=== PATIENT | female | born 1970 | race Caucasian/White ===

== ENCOUNTER → 2021-07-14 13:48 | Outpatient (CLI) | payer OTHER, SELFPAY ==
--- NOTE | ~2021-07-14 | MR_ITS ---
EXAMINATION: MR brain/brain stem wo/w con DATE: 07/14/2021 15:13 INDICATION: Multiple sclerosis. TECHNIQUE: Magnetic resonance imaging (MRI) of the brain and brainstem was performed without and with 15 mL MultiHance intravenous contrast. Sequences included sagittal and axial T1-weighted FLAIR, axia l T1-weighted FSE, axial diffusion-weighted FS EPI, sagittal T2-weighted FLAIR, axial T2*-weighted GR E, axial T2-weighted FLAIR Propeller, and axial T2-weighted Propeller. Postcontrast sequences include d axial, coronal, and sagittal T1-weighted FSE. Apparent diffusion coefficient (ADC) maps were create d. COMPARISON: Brain MRI 10/30/2018 FINDINGS: There are approximately 9 total lesions of increased T2-weighted signal intensity in the br ain. Of these lesions, approximately 4 are periventricular, none are juxtacortical, and 3 are infrate ntorial in the medulla. None of the lesions enhance. There is no acute ischemic infarct or intracrani al hemorrhage. The ventricles are normal in size. There is mild mucosal thickening in the ethmoid sin uses. The orbits are normal. The mastoid air cells are normal. IMPRESSION: 1. Brain lesions without change in number or distribution from 10/30/2018, consistent with multiple sc lerosis. Reviewed, dictated and finalized at location B. IMPRESSION: 1. Brain lesions without change in number or distribution from 10/30/2018, consi stent with multiple sclerosis.
--- NOTE | ~2021-07-14 | MR_ITS ---
EXAMINATION: MR cervical spine wo/w con DATE: 07/14/2021 15:00 INDICATION: Multiple sclerosis. TECHNIQUE: Magnetic resonance imaging (MRI) of the cervical spine was performed without and with 15 m L MultiHance intravenous contrast. Sequences included sagittal and axial T2-weighted FSE, sagittal T2 -weighted FS FSE, and sagittal and axial T1-weighted FSE. Postcontrast sequences included sagittal an d axial T1-weighted FS FSE. COMPARISON: Cervical spine MRI 10/30/2018 FINDINGS: There is 10 degrees dextroscoliosis of cervical spine. Vertebral body heights are normal. T here is mildly decreased disc height at C5-C6 and moderately decreased disc height at C6-C7. There ar e patchy areas of ill-defined increased T2-weighted signal intensity involving the medulla and cervic al spinal cord. No abnormal contrast enhancement. The following disc levels are specifically discusse d: C2-C3: The disc does not extend beyond the endplate margin. There is no uncovertebral joint osteoarth ritis. There is no facet joint osteoarthritis. There is no neural foraminal stenosis. There is no olayinka tral canal stenosis. C3-C4: The disc is bulging. There is mild bilateral uncovertebral joint osteoarthritis. There is mild right and moderate left facet joint osteoarthritis. There is no neural foraminal stenosis. There is no central canal stenosis. C4-C5: The disc does not extend beyond the endplate margin. There is no uncovertebral joint osteoarth ritis. There is no facet joint osteoarthritis. There is no neural foraminal stenosis. There is no olayinka tral canal stenosis. C5-C6: The disc is bulging. There is moderate bilateral uncovertebral joint osteoarthritis. There is mild bilateral facet joint osteoarthritis. There is mild bilateral neural foraminal stenosis. There i s mild central canal stenosis. C6-C7: The disc is bulging. There is moderate bilateral uncovertebral joint osteoarthritis. There is moderate right and mild left facet joint osteoarthritis. There is mild bilateral neural foraminal ramez nosis. There is mild central canal stenosis. C7-T1: The disc does not extend beyond the endplate margin. There is no uncovertebral joint osteoarth ritis. There is mild right and moderate left facet joint osteoarthritis. There is mild left neural fo raminal stenosis. There is no central canal stenosis. IMPRESSION: 1. Stable number and distribution of lesions involving the medulla and spinal cord, consistent with m ultiple sclerosis. 2. Worsened moderate cervical spondylosis. 3. Cervical dextroscoliosis. Reviewed, dictated and finalized at location B. IMPRESSION: 1. Stable number and distribution of lesions involving the medulla and spinal c ord, consistent with multiple sclerosis. 2. Worsened moderate cervical spondylosis. 3. Cervical dextroscoliosis.
[2021-07-14 14:13] LABS: Estimated Glomerular Filt Rate > 60
== END ==
PROVIDERS: Visit Provider Psychiatry & Neurology Neurology
DX: G35 Multiple sclerosis (principal); M47.892 Other spondylosis, cervical region
CPT/HCPCS: 70553; 72156; A9577

== ENCOUNTER 2023-07-01 06:52 | Day surgery (SDC) | payer OTHER, SELFPAY ==
[2023-05-13 08:33] VITALS: BMI 27.4
[2023-06-13 11:39] VITALS: BMI 29.0
--- NOTE | 2023-06-29 11:05 | WPDANESEPPF ---
Anes - Initial Pre Proc Eval Procedure: Operation Date: 07/01/23 09:00 Proposed Procedures p Diagnostic Colonoscopy - Mainor Mohan MD Date/Time: 06/29/23 11:05 Surgeon: Mainor Mohan MD Pre Op Diagnosis: Fecal Urgency, neoplasia screening Patient Data Age: 52 Gender: F Height: 1.65 m Weight: 79 kg Allergies Allergy/AdvReac Type Severity Reaction Status Date / Time No Known Allergies Allergy Mild Verified 06/13/23 11:37 Home Medications Medication Instructions Recorded Confirmed Type desvenlafaxine succinate 50 mg 50 mg PO DAILY 10/08/22 07/01/23 History tablet,extended release 24 hr fesoterodine 8 mg tablet,extended 8 mg PO DAILY 10/08/22 07/01/23 History release 24 hr (Toviaz) teriflunomide 14 mg tablet 14 mg PO DAILY 10/08/22 07/01/23 History (Aubagio) valacyclovir 1 gram tablet 1,000 mg PO DAILY 10/08/22 07/01/23 History sodium,potassium,mag sulfates 17.5 See Rx Instructions PO .COMPLEX 05/13/23 07/01/23 Rx gram-3.13 gram-1.6 gram oral soln #354 mL (Suprep Bowel Prep Kit) ascorbate calcium (vitamin C) 500 500 mg PO DAILY 06/13/23 07/01/23 History mg tablet cholecalciferol (vitamin D3) 50 50 mcg PO DAILY 06/13/23 07/01/23 History mcg (2,000 unit) capsule (Vitamin D3) Patient hx anesthesia problems: none Family hx anesthesia problems: none Results Review: All pre-operative results and documents have been reviewed as part of the pre-operative evaluation. COUNT INCLUDES THE [facility] Past Medical History Medical History (Updated 07/01/23 @ 08:42 by Mainor Mohan MD) Abnormal Pap smear of cervix 10/2009- lgsil sl dysplasia +hpv 09/2012- Lgsil mild dysplasia +hpv 03/21/2016 Hgsil +hpv; 04/04/2020 Ascus hpv neg Anxiety and depression Fecal incontinence Fecal urgency HPV in female Multiple sclerosis Pityriasis rosea Screening mammogram, encounter for Surgical History Surgical History H/O LEEP (05/03/16) HGSIL (KIM 2-3) margin involved History of (01/11/98) History of colposcopy with cervical biopsy 10/30/12 LGSIL mild dysplasia +hpv History of tubal ligation Family History Family History Mother Hypertension Depressive disorder Social History Social History Smoking status: Never smoker Alcohol intake: current Drinks per week: 0 Alcohol use details: ONE A MONTH Substance use: never Substance use type: does not use Living arrangements: alone Additional living arrangements comments: Occupation/Education: occupation 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 Gender identity (if verbalized by the patient): Female Sexual Orientation (if Verbalized by the Patient): Straight or Heterosexual Spiritual care concerns: No Anes - Eval Final PreProcedure Day of Procedure 06/29/23 11:05 Patient weight: overweight Heart: regular rate and rhythm Lungs: clear to auscultation Airway: Mallampati scale class II Neurological: alert and oriented Last oral intake: >/= 8 hours ASA classification: II Emergent: no Anesthetic plan: proceed Anesthesia type and monitoring: general GIVS and standard monitoring Results Review: All pre-operative results and documents have been reviewed as part of the pre-operative evaluation. Informed Consent: The patient's anesthetic plan and its attendant risks and benefits were discussed with the patient/family/POA. Questions were solicited and answers provided to the satisfaction of the patient/family/POA.
[2023-07-01 08:14] VITALS: BP 114/92; PULSE 96; RESP 16; TEMP 36.8; O2SAT 96
[2023-07-01] MEDS: LACTATED RINGERS 1,000 ML 150 ML IV CONT (08:23)
--- NOTE | 2023-07-01 08:40 | PM.HPGS ---
History of Present Illness History of Present Illness Consent: Risks, benefits, and alternatives have been discussed and questions answered. Patient agrees to proceed with procedure. Chief complaint: Fecal Urgency, neoplasia screening Narrative: Briana Madrid is a 52 year old female Presents for screening colonoscopy. Patient has never had prior scope the. Patient does have a history of multiple sclerosis. She reports when she goes for several mile walk, she will have urgency and need to stop in have a bowel movement. She denies any bleeding. She has had no weight loss. Family history non control Review of Systems Review of Systems: systems noncontributory. [facility] Past Medical History Medical History (Updated 07/01/23 @ 08:42 by Mainor Mohan MD) Abnormal Pap smear of cervix 10/2009- lgsil sl dysplasia +hpv 09/2012- Lgsil mild dysplasia +hpv 03/21/2016 Hgsil +hpv; 04/04/2020 Ascus hpv neg Anxiety and depression Fecal incontinence Fecal urgency HPV in female Multiple sclerosis Pityriasis rosea Screening mammogram, encounter for Surgical History Surgical History H/O LEEP (05/03/16) HGSIL (KIM 2-3) margin involved History of (01/11/98) History of colposcopy with cervical biopsy 10/30/12 LGSIL mild dysplasia +hpv History of tubal ligation Family History Family History Mother Hypertension Depressive disorder Social History Social History Smoking status: Never smoker Alcohol intake: current Drinks per week: 0 Alcohol use details: ONE A MONTH Substance use: never Substance use type: does not use Living arrangements: alone Additional living arrangements comments: Occupation/Education: occupation 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 Gender identity (if verbalized by the patient): Female Sexual Orientation (if Verbalized by the Patient): Straight or Heterosexual Spiritual care concerns: No Meds Home Medications and Allergies Home Medications Medication Instructions Recorded Confirmed Type desvenlafaxine succinate 50 mg 50 mg PO DAILY 10/08/22 07/01/23 History tablet,extended release 24 hr fesoterodine 8 mg tablet,extended 8 mg PO DAILY 10/08/22 07/01/23 History release 24 hr (Toviaz) teriflunomide 14 mg tablet 14 mg PO DAILY 10/08/22 07/01/23 History (Aubagio) valacyclovir 1 gram tablet 1,000 mg PO DAILY 10/08/22 07/01/23 History sodium,potassium,mag sulfates 17.5 See Rx Instructions PO .COMPLEX 05/13/23 07/01/23 Rx gram-3.13 gram-1.6 gram oral soln #354 mL (Suprep Bowel Prep Kit) ascorbate calcium (vitamin C) 500 500 mg PO DAILY 06/13/23 07/01/23 History mg tablet cholecalciferol (vitamin D3) 50 50 mcg PO DAILY 06/13/23 07/01/23 History mcg (2,000 unit) capsule (Vitamin D3) Allergies Allergy/AdvReac Type Severity Reaction Status Date / Time No Known Allergies Allergy Mild Verified 06/13/23 11:37 Vital Signs Vital Signs - 24 hr 07/01/23 08:14 Temperature 98.2 F Pulse Rate 96 Respiratory Rate 16 Blood Pressure 114/92 H Pulse Oximetry 96 Oxygen Delivery Room Air Exam Narrative: Physical exam reveals patient to be alert. Vital signs stable. HEENT exam is unremarkable. Patient is anicteric. Lungs are clear to auscultation and percussion. Heart is without murmur or extra sounds. Abdomen bowel sounds are present soft nontender with no organomegaly. Digital rectal exam appears unremarkable with normal tone. Assessment and Plan Assessment and plan (1) Encounter for screening colonoscopy: Code(s): Z12.11 - Encounter for screening for malignant neoplasm of colon Status: Acute Assessment and Plan: Patient has never had prior screening colonoscopy. Because of her age screen
[2023-07-01 09:11] VITALS: BP 96/75; PULSE 93; RESP 16; O2SAT 98
[2023-07-01 09:21] VITALS: BP 107/73; PULSE 86; RESP 16; O2SAT 98
[2023-07-01 09:31] VITALS: BP 111/72; PULSE 85; RESP 14; O2SAT 97
--- NOTE | 2023-07-01 12:32 | WPDANESPN ---
Anes - Prog Note Post-Op Date/Time: 07/01/23 12:32 Cardiovascular status: normal Respiratory status: normal Airway patency: baseline Mental status: baseline Post-Op hydration status: normal Vital Signs: Last Vital Signs Temp 36.8 C 07/01/23 08:14 Pulse 85 07/01/23 09:31 Resp 14 07/01/23 09:31 BP 111/72 07/01/23 09:31 Pulse Ox 97 07/01/23 09:31 O2 Del Method Room Air 07/01/23 09:31 Pain Score (VAS): 0 I/O: Intake & Output 06/30/23 07/01/23 07/01/23 23:59 07:59 15:59 Intake Total 750 Balance 750 Post-procedural complaints: none Patient Feedback: Patient satisfied with anesthetic care. Other Findings: Patient vital signs back to baseline. Patient denies nausea and vomiting. Patient's pain under control. Patient OK for discharge.
== END 2023-07-01 09:55 | disposition home or self-care (01) ==
PROVIDERS: PCP Family Medicine; Visit Provider Internal Medicine Gastroenterology
PROC: 0DJD8ZZ Inspection of Lower Intestinal Tract, Via Natural or Artificial Opening Endoscopic (ICD-10-PCS; CPT 45378; principal; 2023-07-01 09:00)
DX: Z12.11 Encounter for screening for malignant neoplasm of colon (principal); R15.2 Fecal urgency
CPT/HCPCS: 45378

== ENCOUNTER 2023-11-08 13:49 | Outpatient (CLI) | payer OTHER, SELFPAY ==
--- NOTE | ~2023-11-08 | MR_ITS ---
EXAMINATION: MR brain/brain stem wo con DATE: 11/08/2023 14:34 INDICATION: Multiple sclerosis. TECHNIQUE: Magnetic resonance imaging (MRI) of the brain and brainstem was performed without intraven ous contrast. COMPARISON: Brain MRI 07/14/2021 FINDINGS: Again seen are approximately 9 total lesions of increased T2-weighted signal intensity in t he brain. Of these lesions, multiple are periventricular, none are juxtacortical, and multiple are in fratentorial in the medulla. There is no intracranial hemorrhage or acute ischemic infarct. The ventr icles are normal in size. The orbits are normal. The paranasal sinuses are clear. The mastoid air donny ls are normal. IMPRESSION: 1. Brain lesions without change in number or distribution from 07/14/2021, consistent with multiple sc lerosis. Reviewed, dictated and finalized at location A. TRICIAN IMPRESSION: 1. Brain lesions without change in number or distribution from 07/14/2021, consi stent with multiple sclerosis.
--- NOTE | ~2023-11-08 | MR_ITS ---
EXAMINATION: MR cervical spine wo con DATE: 11/08/2023 14:36 INDICATION: Multiple sclerosis. TECHNIQUE: Magnetic resonance imaging (MRI) of the cervical spine was performed without intravenous c ontrast. COMPARISON: Cervical spine MRI 07/14/2021 FINDINGS: There is 11 degrees dextroscoliosis of cervical spine. Vertebral body heights are normal. T here is mildly decreased disc height at C3-C4 and C4-C5 and moderately decreased disc height at C5-C6 and C6-C7. There are multiple ill-defined lesions of increased T2-weighted signal intensity in the c ervical spinal cord and medulla. The following disc levels are specifically discussed: C2-C3: The disc does not extend beyond the endplate margin. There is mild bilateral uncovertebral zoltan nt osteoarthritis. There is mild bilateral facet joint osteoarthritis. There is no neural foraminal s tenosis. There is no central canal stenosis. C3-C4: The disc is bulging. There is mild bilateral uncovertebral joint osteoarthritis. There is mild bilateral facet joint osteoarthritis. There is no neural foraminal stenosis. There is no central can al stenosis. C4-C5: The disc is bulging. There is mild bilateral uncovertebral joint osteoarthritis. There is mild left facet joint osteoarthritis. There is no neural foraminal stenosis. There is no central canal st enosis. C5-C6: The disc is bulging. There is severe bilateral uncovertebral joint osteoarthritis. There is mi ld bilateral facet joint osteoarthritis. There is mild bilateral neural foraminal stenosis. There is mild central canal stenosis. C6-C7: The disc is bulging. There is severe bilateral uncovertebral joint osteoarthritis. There is mo derate bilateral facet joint osteoarthritis. There is moderate right and mild left neural foraminal s tenosis. There is mild central canal stenosis. C7-T1: The disc does not extend beyond the endplate margin. There is mild right and severe left uncov ertebral joint osteoarthritis. There is mild bilateral facet joint osteoarthritis. There is no neural foraminal stenosis. There is no central canal stenosis. IMPRESSION: 1. Stable lesions in the spinal cord and medulla, consistent with multiple sclerosis. 2. Moderate cervical spondylosis, mildly worsened from 07/14/2021. Reviewed, dictated and finalized at location A. STRIAL X RAY OPERATOR IMPRESSION: 1. Stable lesions in the spinal cord and medulla, consistent with multiple scle rosis. 2. Moderate cervical spondylosis, mildly worsened from 07/14/2021.
== END 2023-11-08 13:50 ==
PROVIDERS: PCP Psychiatry & Neurology Neurology; Visit Provider Psychiatry & Neurology Neurology
DX: G35 Multiple sclerosis (principal); M47.892 Other spondylosis, cervical region
CPT/HCPCS: 70551; 72141

== ENCOUNTER 2024-12-21 15:48 | Outpatient (CLI) | payer OTHER, SELFPAY ==
--- NOTE | ~2024-12-21 | US_ITS ---
EXAMINATION: US soft tissue LE RT DATE: 12/21/2024 16:04 INDICATION: Right foot lump. TECHNIQUE: Multiple grayscale ultrasound images of the right foot were obtained. COMPARISON: None FINDINGS: There is no abnormal mass or cyst in the patient's area of concern in right foot. IMPRESSION: 1. No abnormal mass or cyst in the patient's area of concern in right foot. Reviewed, dictated and finalized at location A. RACTIVE DESIGNER
== END 2024-12-21 15:49 | disposition home or self-care (01) ==
LOC: MICIMG 15:48
DX: R22.41 Localized swelling, mass and lump, right lower limb (principal)
CPT/HCPCS: 76882

== ENCOUNTER 2025-06-19 11:26 | Outpatient (CLI) | payer OTHER, SELFPAY ==
--- NOTE | ~2025-06-19 | MM_ITS ---
EXAMINATION: MM screening [facility] BI w brown HISTORY: Screening TECHNIQUE: Craniocaudal and mediolateral oblique 3-D tomosynthesis images were obtained and synthetic 2-D images were generated. CAD analysis was submitted and interpreted. COMPARISON: No prior studies for comparison. BREAST PARENCHYMAL COMPOSITION: Not dense: There are scattered areas of fibroglandular density. FINDINGS: There is a lobulated mass in the upper central right breast, middle third posterior to a ti ssue marker. There is a focal asymmetry in the upper central left breast, middle third. There are no suspicious calcifications. IMPRESSION: 1. Lobulated right breast mass upper central breast, middle third. Left breast asymmetry upper centra l breast, middle third. 2. Additional mammographic views and possible breast ultrasound are recommended. BI-RADS Category 0: Incomplete: Needs additional imaging evaluation. Reviewed, dictated and finalized at location A. IMPRESSION: 1. Lobulated right breast mass upper central breast, middle third. Left breast asymmetry upper central breast, middle third. 2. Additional mammographic views and possible breast ultrasound are recommended . BI-RADS Category 0: Incomplete: Needs additional imaging evaluation.
--- OUTSIDE RECORDS SUMMARY | 2025-06-19 11:29 | XMS_ITS | Referral Summary ---
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 Active valACYclovir (VALTREX) 1 gram tablet Take 1 tablet (1,000 mg total) by mouth daily 11/23/2021 Active ascorbic acid (VITAMIN C ORAL) Take by mouth Active teriflunomide 14 mg tablet TAKE 1 TABLET BY MOUTH 1 TIME A DAY 90 tablet 3 07/24/2024 Active fesoterodine 8 mg tablet extended release 24 hrIndications:Ne urogenic bladder Take 1 tablet (8 mg total) by mouth daily 90 tablet 3 03/19/2025 Active modafiniL (PROVIGIL) 200 mg tablet TAKE 1/2 TO 1 (ONE-HALF TO ONE) TABLET BY MOUTH ONCE DAILY 30 tablet 5 05/12/2025 Active Active Problems Problem Noted Date Diagnosed Date History of COVID-19 11/16/2022 Assessment & Plan (05/21/2024 4:25 PM CDT): October 2022: Tested positive on home test Achiness, nasal congestion, headache, sore throat and cough. Paxlovid prescribed yesterday. Toviaz on hold while taking Paxlovid. Assessment & Plan (11/14/2023 4:07 PM ELIGIBILITY TECHNICIAN): October 2022: Tested positive on home test Achiness, nasal congestion, headache, sore throat and cough. Paxlovid prescribed yesterday. Toviaz on hold while taking Paxlovid. Assessment & Plan (05/17/2023 7:15 AM CDT): October 2022: Tested positive on home test Achiness, nasal congestion, headache, sore throat and cough. Paxlovid prescribed yesterday. Toviaz on hold while taking Paxlovid. Assessment & Plan (11/16/2022 12:48 PM ELIGIBILITY TECHNICIAN): Four days ago, developed achiness, nasal congestion, headache, sore throat and cough. Tested positive for COVID-19 home test. Paxlovid prescribed yesterday. Toviaz on hold while taking Paxlovid. Neurogenic bladder 07/22/2018 Assessment & Plan (05/21/2024 4:24 PM CDT): Toviaz (fesoterodine) 8 mg daily Assessment & Plan (11/14/2023 3:54 PM ELIGIBILITY TECHNICIAN): Toviaz 8 mg daily Assessment & Plan (05/17/2023 7:13 AM CDT): Toviaz 8 mg daily Assessment & Plan (11/16/2022 12:40 PM ELIGIBILITY TECHNICIAN): Toviaz 8 mg daily Assessment & Plan (12/21/2021 12:09 PM ELIGIBILITY TECHNICIAN): Toviaz 8 mg daily Assessment & Plan (06/17/2021 6:50 AM CDT): Toviaz 8 mg daily Assessment & Plan (09/15/2020 11:18 AM CDT): Toviaz 8 mg daily Assessment & Plan (03/07/2020 12:45 PM CDT): Toviaz 8 mg daily Assessment & Plan (01/27/2019 3:48 PM ELIGIBILITY TECHNICIAN): Toviaz 8 mg daily Assessment & Plan (07/22/2018 7:50 AM CDT): Toviaz 8 mg daily Migraine without aura and wi thout status migrainosus, not intractable 07/22/2018 Assessment & Plan (05/21/2024 4:24 PM CDT): Raymond douglasn Never tried Relpax Assessment & Plan (11/14/2023 4:06 PM ELIGIBILITY TECHNICIAN): Maria Doloresdrin stellan Never tried Relpax Assessment & Plan (05/17/2023 7:15 AM CDT): Excedrin prn Never tried Relpax Assessment & Plan (11/16/2022 12:40 PM ELIGIBILITY TECHNICIAN): Maria Doloresdrin prn Never tried Relpax Assessment & Plan (12/21/2021 12:09 PM ELIGIBILITY TECHNICIAN): Maria Doloresdrin prn Never tried Relpax Assessment & Plan (06/17/2021 6:50 AM CDT): Maria Doloresdrin prn Never tried Relpax Assessment & Plan (09/15/2020 11:18 AM CDT): Raymond mcclelland Never tried Relpax Assessment & Plan (03/07/2020 12:44 PM CDT): Raymond mcclelland Never tried Relpax Assessment & Plan (01/27/2019 3:46 PM ELIGIBILITY TECHNICIAN): Raymond mcclelland Never tried Relpax Assessment & Plan (07/22/2018 7:50 AM CDT): Raymond mcclelland Never tried Relpax 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 07/22/2018 Assessment & Plan (05/21/2024 4:24 PM CDT): Pristiq 50 mg daily Assessment & Plan (11/14/2023 4:06 PM ELIGIBILITY TECHNICIAN): Pristiq 50 mg daily Assessment & Plan (05/17/2023 7:15 AM CDT): Pristiq 50 mg daily Assessment & Plan (11/16/2022 12:47 PM ELIGIBILITY TECHNICIAN): Pristiq 50 mg daily Assessment & Plan (12/21/2021 12:09 PM ELIGIBILITY TECHNICIAN): Pristiq 50 mg daily Assessment & Plan (06/17/2021 6:50 AM CDT): Pristiq 50 mg daily Assessment & Plan (09/15/2020 11:18 AM CDT): Pristiq 50 mg daily Assessment & Plan (03/07/2020 12:44 PM CDT): Pristiq 50 mg daily Assessment & Plan (01/27/2019 3:46 PM ELIGIBILITY TECHNICIAN): Pristiq Assessment & Plan (07/22/2018 7:50 AM CDT): Patriciaiq Multiple sclerosis 04/10/2014 Overview (09/15/2018): MULTIPLE SCLEROSIS Diagnosis Treatment history Copaxone [id number], injection fatigue Gilenya 2017, never started due to fear of side effects Aubagio Assessment & Plan (05/21/2024 4:23 PM CDT): Teriflunomide 14 mg daily. Risks and benefits discussed including hepatotoxicity and hypertension. MRI images requested from [facility] again. Will consider alternative higher-efficacy DMT depending on spinal cord disease burden. Increased risk of serious complications including pneumonia and possibly if she develops COVID-19 reinfection discussed. Last COVID-19 vaccine fall 2022. She understands that teriflunomide may reduce the efficacy of a COVID-19 vaccine and potentially she may not be protected, but favorable teriflunomide vaccination data in general shared. Paxlovid advised again if she develops recurrent COVID-19. Vitamin D3 5000 IU Provigil 100 mg once a day as needed Exercise encouraged MRI brain and cervical spine October 2025 Assessment & Plan (11/14/2023 3:54 PM ELIGIBILITY TECHNICIAN): Aubagio 14 mg daily. Risks and benefits discussed including hepatotoxicity and hypertension. MRI images requested from [facility]. Will consider alternative higher-efficacy DMT depending on spinal cord disease burden. Increased risk of serious complications including pneumonia and possibly if develops COVID-19 reinfection discussed. She received her 3rd Pfizer COVID 19 vaccine on September 03, 2022. Another booster vaccination advised. She understands that Aubagio may reduce the efficacy of a COVID-19 vaccine and potentially she may not be protected, but favorable Aubagio influenza vaccination data shared. Paxlovid advised again if she develops recurrent COVID-19. Vitamin D3 5000 IU Provigil 100 mg once a day as needed Continue exercise Assessment & Plan (05/17/2023 7:10 AM CDT): Aubagio 14 mg daily. Risks and benefits discussed including hepatotoxicity and hypertension. Increased risk of serious complications including pneumonia and possibly if develops COVID-19 reinfection discussed. She received her 3rd Pfizer COVID 19 vaccine on September 03, 2022. She understands that Aubagio may reduce the efficacy of a COVID-19 vaccine and potentially she may not be protected, but favorable Aubagio influenza vaccination data shared. Tio advised again if she develops recurrent COVID-19. Vitamin D3 5000 IU Provigil 100 mg once a day as needed Continue exercise Assessment & Plan (11/16/2022 12:49 PM ELIGIBILITY TECHNICIAN): Aubagio 14 mg daily. Risks and benefits discussed including hepatotoxicity and hypertension. Increased risk of serious complications including pneumonia and possibly if develops COVID-19 reinfection discussed. She received her 3rd Pfizer COVID 19 vaccine on September 03, 2022. She understands that Aubagio may reduce the efficacy of a COVID 19 vaccine and potentially she may not be protected, but favorable Aubagio influenza vaccination data shared. Tio advised again if she develops recurrent COVID-19. Vitamin D3 5000 IU Provigil 100 mg once a day as needed Continue exercise MRI brain and cervical spine June 2023 Assessment & Plan (12/21/2021 12:29 PM ELIGIBILITY TECHNICIAN): Aubagio 14 mg daily. Risks and benefits discussed including hepatotoxicity and hypertension. Increased risk of serious complications if develops COVID-19 infection discussed including pneumonia and possibly . She received her 2nd Pfizer COVID 19 vaccine on March 03, 2021. Booster vaccination recommended. She understands that Aubagio may reduce the efficacy of a COVID 19 vaccine and potentially she may not be protected, but favorable Aubagio influenza vaccination data shared. Vitamin D3 5000 IU Provigil 100 mg once a day as needed Continue exercise Assessment & Plan (06/17/2021 6:50 AM CDT): New 4+/5 right iliopsoas and anterior tibialis weakness. Patient apparently asymptomatic regarding new weakness on examination. Due to COVID-19 pandemic and 2 virtual visits, last examination was January 2019. Since unclear when weakness began, will defer on intravenous Solu-Medrol. However, patient will complete MRI scan of the brain and cervical spine as ordered in January. Continue Aubagio for now. Risks and benefits discussed including hepatotoxicity and hypertension. Increased risk of serious complications if develops COVID-19 infection discussed including pneumonia and possibly . She received her 2nd Pfizer COVID 19 vaccine on March 03, 2021. She understands that Aubagio may reduce the efficacy of a COVID 19 vaccine and potentially she may not be protected, but favorable Aubagi influenza vaccination data shared. Vitamin D3 5000 IU Provigil 100 mg once a day as needed Continue exercise Assessment & Plan (09/15/2020 11:17 AM CDT): Continue Aubagio. Risks and benefits discussed including hepatotoxicity and hypertension. Importance of laboratory monitoring discussed; labs not completed as ordered and February 2020. Increased risk of serious complications if develops COVID-19 infection discussed including pneumonia and possibly . Patient working from home and maintaining social distancing. Vitamin D3 5000 IU Provigil 100 mg daily Restart exercise MRI of the brain and cervical spine by October 2020. Patient will apply for financial assistance via [employer] MRI access [employer]. Assessment & Plan (03/07/2020 12:44 PM CDT): Continue Aubagio. Risks and benefits discussed including hepatotoxicity and hypertension. Vitamin D3 5000 IU Provigil 100 mg daily Restart exercise Adherence emphasized to labs and appointments every 6 months. Last appointment 1 year ago. Assessment & Plan (01/27/2019 3:47 PM ELIGIBILITY TECHNICIAN): Continue Aubagio. Risks and benefits of Aubagio discussed including low white count/potential serious infection, hypertension, harm, hepatotoxicity, alopecia and diarrhea. Vitamin D3 5000 IU Provigil 100 mg daily Exercise Adherence to labs emphasized. Patient did not complete monthly liver function test is ordered on Aubagio. The risk of severe hepatotoxicity discussed. She has agreed to get labs done today. Assessment & Plan (07/22/2018 8:01 AM CDT): Due to injection fatigue, she strongly desires to switch to oral disease modifying therapy from Copaxone. She did not tolerate Tecfidera due to severe flushing/itching. Both Aubagio and Gilenya were discussed as options. Risks and benefits of Aubagio discussed including low white count/potential serious infection, hypertension, harm, hepatotoxicity, alopecia and diarrhea. The benefits and risks of Gilenya were discussed including bradycardia, heart block, hypertension, macular edema, harm, serious infections (including PML/cryptococcal meningitis), pulmonary/hepatic toxicity, basal carcinoma and even . She would like to initiate Gilenya. On vitamin D3 5000 IU Provigil 100 mg daily Exercise Adherence to appointments and labs was discussed since last appointment was December 21, 2016 with Irma García NP and January 18, 2016 with me. Patient should be seen in office at least every 6 months. Importance of follow-up visits was discussed including for safety monitoring on disease-modifying therapy. Resolved Problems Problem Noted Date Diagnosed Date Resolved Date Paresthesias in left hand 05/17/2023 Assessment & Plan (11/14/2023 3:55 PM ELIGIBILITY TECHNICIAN): Suspect left carpal tunnel syndrome since intermittent numbness in her left and with driving, upon awakening, using a phone and playing video games. Left-hand dominant. Left wrist splint at night helpful EMG/NCS previously ordered, but not completed. Likely will be performed through occupational health. Assessment & Plan (05/17/2023 7:12 AM CDT): Suspect left carpal tunnel syndrome since intermittent numbness in her left and with driving, upon awakening, using a phone and playing video games. Left-hand dominant. Left wrist splint at night helpful Immunizations Immunization Administration Dates Next Due Hep A, Adult 02/01/2015,12/31/2014 Hep B Vaccine 02/01/2015,12/31/2014 Influenza, Quadrivalent, Shayla l Culture-based MDCK, Preservative Free, Antibiotic Free, Intramuscular 09/03/2022 Influenza, Quadrivalent, Spl it, Intramuscular 10/08/2016,10/13/2015 Influenza, Quadrivalent, Spl it, Preservative Free, Intramuscular 09/15/2020,09/09/2019,08/26/2018,10/11 Influenza, Trivalent, IM (MDV) 10/15/2014 Pfizer SARS-CoV-2 Monovalent Vaccination (12+ Yrs) PURPLE 03/03/2021,02/07/2021 Tdap 12/31/2014 Typhoid Inactivated 12/31/2014 ZOSTER Recombinant 06/12/2022,01/24/2022 Social History Tobacco Use Types Packs/Day Years Used Date Smoking Tobacco: Never Tobacco Cessation:Counseling Given: Not Answered Alcohol Use Standard Drinks/Week Comments Yes 0 (1 standard drink = 0.6 oz pur e alcohol) Comments Unknown Sex and Gender Information Value Date Recorded Sex Assigned at Not on file Legal Sex Female 1:14 AM ELIGIBILITY TECHNICIAN Gender Identity Female 10/23/2023 8:02 AM ELIGIBILITY TECHNICIAN Sexual Orientation Straight 10/23/2023 8: 02 AM ELIGIBILITY TECHNICIAN Last Filed Vital Signs Vital Sign Reading Time Taken Comments Blood Pressure 120/80 06/02/2025 12:23 PM CDT Pulse 90 06/02/2025 12:23 PM CDT Temperature 35.8 C (96.4 F) 06/02/2025 12:23 PM CDT Respiratory Rate 16 01/27/2019 2:18 PM ELIGIBILITY TECHNICIAN Oxygen Saturation 96% 06/02/2025 12:23 PM CDT Inhaled Oxygen Concentration - - Weight 79.8 kg (176 lb) 06/02/2025 12:23 PM CDT Height 167.6 cm (5' 6) 06/02/2025 12:23 PM CDT Body Mass Index 28.41 06/02/2025 12:23 PM CDT Plan of Treatment Not on file Insurance [facility] HMO/PPO Address: [facility] [address] [place] [address] [facility] CHOICE PLUS [facility] HMO/PPO Address: [facility] [id number] [place] [id number] Care Teams Director Index Relationship Specialty Start Date End Date Neal Sultana MD [facility] [place] [address] PCP - General 11/12/11
--- OUTSIDE RECORDS SUMMARY | 2025-06-19 11:29 | XMS_ITS | Clinical Summary ---
Author Organization [facility] Address [address] [place] [address] Care Team Providers Care Slip Sheeter Name Role Phone Unavailable Primary Care Provider Unavailabl e Social History Tobacco Use Types Packs/Day Years Used Date Smoking Tobacco: Never Assessed Comments Unknown Sex and Gender Information Value Date Recorded Sex Assigned at Not on file Legal Sex Female 8:06 PM CDT Gender Identity Not on file Sexual Orientation Not on file Plan of Treatment Health Maintenance Due Date Last Done Comments Cervical Cancer Screening Pa p Smear (Age 30 to 64) Every 3 Years 1971 Colorectal Cancer Screening Colonoscopy (10 Years) 1971 Annual Physical 1974 Hepatitis C 1989 DTaP, Tdap and Td Vaccines ( 1 - Tdap) 1990 Hepatitis B Vaccines (1 of 3 - 19+ 3-dose series) 1990 Cervical Cancer Screening Pa p with HPV Testing (Age 30 to 64) Every 5 Years 2001 Cervical Cancer Screening with HPV 2001 Mammogram Screening 2011 Pneumococcal Vaccine: 50+ Ye ars (1 of 1 - PCV) 2021 Zoster Vaccines (1 of 2) 2021 COVID-19 Vaccine (2023-2 5 season) 2024 Meningococcal B Vaccine Aged Out No l onger eligible based on patient's age to complete this topic Meningococcal Vaccine Aged Out No wilmer nishant eligible based on patient's age to complete this topic RSV Immunizations Under 20 Months Aged Out No longer eligible based on patient's age to complete this topic
--- OUTSIDE RECORDS SUMMARY | 2025-06-19 11:29 | XMS_ITS | Clinical Summary ---
Author Organization [facility] Building B Address [address] [place] [address] Care Team Providers Care Charge Operator Name Role Phone Neal Sultana MD Primary Care Provider [phone] Allergies No known active allergies Medications desvenlafaxine [...] Paxlovid. Assessment & Plan (11/14/2023 4:07 PM RN CASE MANAGER HOSPICE): October 2022: Tested positive on home test Achiness, nasal congestion, headache, sore throat and cough. Paxlovid prescribed yesterday. Toviaz on hold while taking Paxlovid. Assessment & Plan (05/17/2023 7:15 AM CDT): October 2022: Tested positive on home test Achiness, nasal congestion, headache, sore throat and cough. Paxlovid prescribed yesterday. Toviaz on hold while taking Paxlovid. Assessment & Plan (11/16/2022 12:48 PM RN CASE MANAGER HOSPICE): Four days ago, developed achiness, nasal congestion, headache, sore throat and cough. Tested positive for COVID-19 home test. Paxlovid prescribed yesterday. Toviaz on hold while taking Paxlovid. Neurogenic bladder 07/22/2018 Assessment & Plan (05/21/2024 4:24 PM CDT): Toviaz (fesoterodine) 8 mg daily Assessment & Plan (11/14/2023 3:54 PM RN CASE MANAGER HOSPICE): Toviaz 8 mg daily Assessment & Plan (05/17/2023 7:13 AM CDT): Toviaz 8 mg daily Assessment & Plan (11/16/2022 12:40 PM RN CASE MANAGER HOSPICE): Toviaz 8 mg daily Assessment & Plan (12/21/2021 12:09 PM RN CASE MANAGER HOSPICE): Toviaz 8 mg daily Assessment & Plan (06/17/2021 6:50 AM CDT): Toviaz 8 mg daily Assessment & Plan (09/15/2020 11:18 AM CDT): Toviaz 8 mg daily Assessment & Plan (03/07/2020 12:45 PM CDT): Toviaz 8 mg daily Assessment & Plan (01/27/2019 3:48 PM RN CASE MANAGER HOSPICE): Toviaz 8 mg daily Assessment & Plan (07/22/2018 7:50 AM CDT): Toviaz 8 mg daily Migraine without aura and wi thout status migrainosus, not intractable 07/22/2018 Assessment & Plan (05/21/2024 4:24 PM CDT): Maria Doloresdrin stellan Never tried Relpax Assessment & Plan (11/14/2023 4:06 PM RN CASE MANAGER HOSPICE): Maria Doloresdrin prn Never tried Relpax Assessment & Plan (05/17/2023 7:15 AM CDT): Excedrin prn Never tried Relpax Assessment & Plan (11/16/2022 12:40 PM RN CASE MANAGER HOSPICE): Excedrin prn Never tried Relpax Assessment & Plan (12/21/2021 12:09 PM RN CASE MANAGER HOSPICE): Maria Doloresdrin prn Never tried Relpax Assessment & Plan (06/17/2021 6:50 AM CDT): Excedrin prn Never tried Relpax Assessment & Plan (09/15/2020 11:18 AM CDT): Excedrin prn Never tried Relpax Assessment & Plan (03/07/2020 12:44 PM CDT): Excedrin prn Never tried Relpax Assessment & Plan (01/27/2019 3:46 PM RN CASE MANAGER HOSPICE): Raymond mcclelland Never tried Relpax Assessment & Plan (07/22/2018 7:50 AM CDT): Raymond mcclelland Never tried Relpax 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 07/22/2018 Assessment & Plan (05/21/2024 4:24 PM CDT): Pristiq 50 mg daily Assessment & Plan (11/14/2023 4:06 PM RN CASE MANAGER HOSPICE): Pristiq 50 mg daily Assessment & Plan (05/17/2023 7:15 AM CDT): Pristiq 50 mg daily Assessment & Plan (11/16/2022 12:47 PM RN CASE MANAGER HOSPICE): Pristiq 50 mg daily Assessment & Plan (12/21/2021 12:09 PM RN CASE MANAGER HOSPICE): Pristiq 50 mg daily Assessment & Plan (06/17/2021 6:50 AM CDT): Pristiq 50 mg daily Assessment & Plan (09/15/2020 11:18 AM CDT): Pristiq 50 mg daily Assessment & Plan (03/07/2020 12:44 PM CDT): Pristiq 50 mg daily Assessment & Plan (01/27/2019 3:46 PM RN CASE MANAGER HOSPICE): Pristiq Assessment & Plan (07/22/2018 7:50 AM CDT): Pristiq Multiple sclerosis 04/10/2014 Overview (09/15/2018): MULTIPLE SCLEROSIS Diagnosis Treatment history Copaxone [id number], injection fatigue Gilenya 2017, never started due to fear of side effects Aubagio Assessment & Plan (05/21/2024 4:23 PM CDT): Teriflunomide 14 mg daily. Risks and benefits discussed including hepatotoxicity and hypertension. MRI images requested from [facility] again. Will consider alternative higher-efficacy DMT depending on spinal cord disease burden. Increased risk of serious complications including pneumonia and possibly if she develops COVID-19 reinfection discussed. Last COVID-19 vaccine fall 2022. She understands that teriflunomide may reduce the efficacy of a COVID-19 vaccine and potentially she may not be protected, but favorable teriflunomide vaccination data in general shared. Jay Jaylovilibertad advised again if she develops recurrent COVID-19. Vitamin D3 5000 IU Provigil 100 mg once a day as needed Exercise encouraged MRI brain and cervical spine October 2025 Assessment & Plan (11/14/2023 3:54 PM RN CASE MANAGER HOSPICE): Aubagio 14 mg daily. Risks and benefits discussed including hepatotoxicity and hypertension. MRI images requested from [facility]. Will consider alternative higher-efficacy DMT depending [...] but favorable Aubagio influenza vaccination data shared. Jay Jaylovilibertad advised again if she develops recurrent COVID-19. [...] but favorable Aubagio influenza vaccination data shared. Nicholevilibertad advised again if she develops recurrent COVID-19. Vitamin D3 5000 IU Provigil 100 mg once a day as needed Continue exercise Assessment & Plan (11/16/2022 12:49 PM RN CASE MANAGER HOSPICE): Aubagio 14 mg daily. Risks and benefits [...] 2023 Assessment & Plan (12/21/2021 12:29 PM RN CASE MANAGER HOSPICE): Aubagio 14 mg daily. Risks and benefits [...] Patient will apply for financial assistance via [facility] MRI access fund. Assessment & Plan (03/07/2020 12:44 PM CDT): Continue Aubagio. Risks and benefits discussed including hepatotoxicity and hypertension. Vitamin D3 5000 IU Provigil 100 mg daily Restart exercise Adherence emphasized to labs and appointments every 6 months. Last appointment 1 year ago. Assessment & Plan (01/27/2019 3:47 PM RN CASE MANAGER HOSPICE): Continue Aubagio. Risks and benefits of Aubagio [...] 05/17/2023 Assessment & Plan (11/14/2023 3:55 PM RN CASE MANAGER HOSPICE): Suspect left carpal tunnel syndrome since intermittent [...] dominant. Left wrist splint at night helpful Encounters Date Type Department Care Team Description 06/02/2025 12:30 PM CDT Office Visit [facility] [address] [address] Enrike Goodman PA Multiple sclerosis (HCC) (Primary Dx); Migraine without aura and without status migrainosus, not intractable; 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 (HCC); Neurogenic bladder from Last 3 Months Immunizations Immunization Administration Dates Next Due Hep A, Adult 02/01/2015,12/31/2014 Hep B Vaccine 02/01/2015,12/31/2014 Influenza, Quadrivalent, Shayla l Culture-based MDCK, Preservative Free, Antibiotic Free, Intramuscular 09/03/2022 Influenza, Quadrivalent, Spl it, Intramuscular 10/08/2016,10/13/2015 Influenza, Quadrivalent, Spl it, Preservative Free, Intramuscular 09/15/2020,09/09/2019,08/26/2018,10/11 Influenza, Trivalent, IM (MDV) 10/15/2014 Pfizer SARS-CoV-2 Monovalent Vaccination (12+ Yrs) PURPLE 03/03/2021,02/07/2021 Tdap 12/31/2014 Typhoid Inactivated 12/31/2014 ZOSTER Recombinant 06/12/2022,01/24/2022 Medical History Medical History Date Comments Hx Other Medical Headache, migra ine Family History Medical History Relation Name Comments Hypertension Father Hypertension; Other Father high chol; Other Mother Unknown; Relation Name Status Comments Father Mother Social History Tobacco Use Types Packs/Day Years Used Date Smoking Tobacco: Never Tobacco Cessation:Counseling Given: Not Answered Alcohol Use Standard Drinks/Week Comments Yes 0 (1 standard drink = 0.6 oz pur e alcohol) Comments Unknown Sex and Gender Information Value Date Recorded Sex Assigned at Not on file Legal Sex Female 1:14 AM RN CASE MANAGER HOSPICE Gender Identity Female 10/23/2023 8:02 AM RN CASE MANAGER HOSPICE Sexual Orientation Straight 10/23/2023 8: 02 AM RN CASE MANAGER HOSPICE Obstetrics History Last Filed Vital Signs Vital Sign Reading Time Taken Comments Blood Pressure 120/80 06/02/2025 12:23 PM CDT Pulse 90 06/02/2025 12:23 PM CDT Temperature 35.8 C (96.4 F) 06/02/2025 12:23 PM CDT Respiratory Rate 16 01/27/2019 2:18 PM RN CASE MANAGER HOSPICE Oxygen Saturation 96% 06/02/2025 12:23 PM CDT Inhaled Oxygen Concentration - - Weight 79.8 kg (176 lb) 06/02/2025 12:23 PM CDT Height 167.6 cm (5' 6) 06/02/2025 12:23 PM CDT Body Mass Index 28.41 06/02/2025 12:23 PM CDT Plan of Treatment Health Maintenance Due Date Last Done Comments Breast Cancer Screening-Mammogram 1971 Cervical Cancer Screening 1971 Colon Cancer Screening-Colonoscopy 1971 Depression Screening 1971 Hepatitis C Screening 1971 Regular Well Visit/Exam 18-64 1989 Covid-19 Vaccine ( season) 2024 09/03/2022, 03/03/2021, 02/07/2021 Influenza Vaccine (#1) 2025 , 09/03/2022, 09/15/2020, Additional history exists DTaP/Tdap/Td Vaccine (3 - Td or Tdap) 04/01/2035 04/01/2025, 12/31/2014 Hepatitis B Screening Completed 02/01/2015, 015 Zoster Vaccine Completed 06/12/2022, 01/24/2022 Pneumococcal vaccine <65 Aged Out No longer eligible based on patient's age to complete this topic Insurance [facility] PLUS [facility] PLUS Care Teams Charge Operator Relationship Specialty Start Date End Date Neal Sultana MD [address] [place] [address] [place] [address] PCP - General 11/12/11
--- OUTSIDE RECORDS SUMMARY | 2025-06-19 11:29 | XMS_ITS | Data Portability ---
Author Organization [place] [facility], Main Office Address [address] [place] [address] Care Team Providers Care Shader And Toner Name Role Phone MARA JESSICA Primary Care Provider MARA JESSICA Referring Provider Assessment Encounter Date Assessment Date Assessment LastModified by Organization Details LastModified Time 01/11/2025 01/11/2025 This note is dictated and transcribed by [employer]. Power Engineer variances may occur. Despite proofreading, typographical errors may occur. Occasional wrong-word or '[id number]' substitutions may have occurred due to the inherent limitations of voice recording. Read the chart carefully and recognize, using context, where substitutions have occurred. [email or web address] Not available 01/11/2025 17:26:53 Plan of Treatment Reminders Order Date Submit Date Provider Last Modified By Organization Details Last Modified Time Details Appointments None recorded. Lab HbA1c (hemoglobin A1c), blood 2024 025 [employer] Maximino [facility], [address], [place], [address], 5 08:22:53 CMP, serum or plasma 2024 025 [facility] [employer] Maximino [facility], Riana Myers, [place], [address], 5 08:22:53 lipid panel, serum 2024 025 [facility] [employer] Maximino [facility], Riana Myers, [place], [address], 5 08:22:53 TSH, serum or plasma 2024 025 [facility]son[facility], [facility], [address], [place], [address], 5 08:22:53 vitamin D, 25-hydroxy, total, serum 2024 025 [facility], [facility] [facility], [address], [place], [address], 5 08:22:54 CBC w/ auto diff 2024 025 [facility]sonGab[facility], [address], [place], [address], 5 08:22:54 vitamin B12 + folate, serum or blood 2024 025 [facility] anson[facility], [address], [place], [address], 5 08:22:54 HbA1c (hemoglobin A1c), blood 2023 024 [employer], [address], [place], [address], 4 08:36:54 CMP, serum or plasma 2023 024 [facility], [address], [place], [address], 4 08:36:52 lipid panel, serum 2023 024 [employer] [facility], [address], [place], [address], 4 08:36:50 TSH, serum or plasma 2023 024 [employer] [facility], [address], [place], [address], 08:36:53 Referral sleep medicine referral - Please call patient to schedule an appointment . Thank you. 2024 025 [email or web address] López Ochoa MD, [address] [place], [address], 12:55:01 Procedures None recorded. Surgeries None recorded. Imaging XR, foot, 3 or more view 2024 025 [facility] [place], [address], [place], [address], 17:28:00 US, foot - Please US right foot Please call pt to schedule 2024 025 [facility], [address], [address], [place], [address], 08:19:45 Medication Orders desvenlafax ine succinate ER 100 mg tablet,exte nded release 24 hr 2024 025 REYNOLD [facility] [employer], [address] [facility], [place], [address], 16:15:58 valacyclovi r 500 mg tablet [address] [facility], [address] [facility], [place], [address], 16:39:51 Patient TargetsNo targets recorded. Patient Instructions Encounter Date Encounter Id Patient Instructions Last Modified By Organization Details Last Modified Time 08/27/2023 [id number] I offered to freeze the wart , she'd prefer to wait . cannot ome back every two weeks at present [email or web address] Not available 09/02/2023 13:47:13 Reason for Referral Sleep Medicine Referral for Sleep apnea Please call patient to schedule an appointment. Thank you. Referring Physician: Mara Jessica, Family Medicine, Encounter Date: 04/01/2025 Results Created Date Observation Date Name Description Value Unit Range Abnormal Flag Note LastModifiedBy Organization Detail LastModifiedTime 03/25/20 24 03/26/2024 LIPID PANEL , STAND ROSANNA cholesterol, total 157 mg/dL <200 normal Not Available [employer] [address] [address] [place], [address], 03/26/2024 08:36:50 03/25/20 24 03/26/2024 LIPID PANEL , STAND ROSANNA HDL cholesterol 46 mg/dL > or = 50 low Not Available [employer] [address] [address] [place], [address], 03/26/2024 08:36:50 03/25/20 24 03/26/2024 LIPID PANEL , STAND ROSANNA triglyceride s 155 mg/dL <150 high Not Available [employer] [address] [address] [address] , [place], [address], 03/26/2024 08:36:50 03/25/20 24 03/26/2024 LIPID PANEL , STAND ROSANNA LDL-choleste rol 86 mg/dL _(john c) normal Refer ence range : <100 Todd able range <100 mg/dL for prima ry preve ntion ; <70 mg/dL for patie nts with CHD or diabe tic patie nts with > or = 2 CHD risk facto rs. LDL-C is now calcu lated using the Helene n-Hop kins calcu amrit n, which is a valid ated novel metho d provi ding david r accur acy than the Fried karla equat ion in the estim ation of LDL-C . Helene lakhani SS et al. SANTIAGO. 2013; 310(1 9): 2061- 2068 (http ://ed ucati on.Qu richardDi E-Health Records Internationals. com/f aq/FA Q164) Not Available [employer] [address] [address] [place], [address], 03/26/2024 08:36:50 03/25/20 24 03/26/2024 LIPID PANEL , STAND ROSANNA chol/HDLC ratio 3.4 (calc ) <5.0 normal Not Available [address], [address], 03/26/2024 08:36:50 03/25/20 24 03/26/2024 LIPID PANEL , STAND ROSANNA non HDL cholesterol 111 mg/dL _(john c) <130 normal For patie nts with diabe emily plus 1 major ASCVD risk facto r, treat ing to a non-H DL-C goal of <100 mg/dL (LDL- C of <70 mg/dL ) is consi leonie a nicole person c optio n. Not Available [address], [address], 03/26/2024 08:36:50 03/25/20 24 03/26/2024 COMPR EHENS LILLIAN METAB OLIC PANEL glucose 76 mg/dL 65-99 normal Fasti ng refer ence inter erna Not Available [address], [address], 03/26/2024 08:36:52 03/25/20 24 03/26/2024 COMPR EHENS LILLIAN METAB OLIC PANEL urea nitrogen (BUN) 20 mg/dL 7-25 normal Not Available [address], [address], 03/26/2024 08:36:52 03/25/20 24 03/26/2024 COMPR EHENS LILLIAN METAB OLIC PANEL creatinine 0.77 mg/dL 0.50-1 .03 normal Not Available [address], [address], 03/26/2024 08:36:52 03/25/20 24 03/26/2024 COMPR EHENS LILLIAN METAB OLIC PANEL eGFR 93 mL/mi n/1.7 3m2 > or = 60 normal Not Available [address], [address], 03/26/2024 08:36:52 03/25/20 24 03/26/2024 COMPR EHENS LILLIAN METAB OLIC PANEL BUN/creatini ne ratio SEE NOTE: (calc ) 6-22 Not Repor kevin: BUN and Creat inine are withi n refer ence range . Not Available [address], [address], 03/26/2024 08:36:52 03/25/20 24 03/26/2024 COMPR EHENS LILLIAN METAB OLIC PANEL sodium 140 mmol/ L 135-14 6 normal Not Available [address], [address], 03/26/2024 08:36:52 03/25/20 24 03/26/2024 COMPR EHENS LILLIAN METAB OLIC PANEL potassium 4.4 mmol/ L 3.5-5. 3 normal Not Available [address], [address], 03/26/2024 08:36:52 03/25/20 24 03/26/2024 COMPR EHENS LILLIAN METAB OLIC PANEL chloride 105 mmol/ L 98-110 normal Not Available [address], [address], 03/26/2024 08:36:52 03/25/20 24 03/26/2024 COMPR EHENS LILLIAN METAB OLIC PANEL carbon dioxide 28 mmol/ L 20-32 normal Not Available [address], [address], 03/26/2024 08:36:52 03/25/20 24 03/26/2024 COMPR EHENS LILLIAN METAB OLIC PANEL calcium 8.4 mg/dL 8.6-10 .4 low Not Available [address], [address], 03/26/2024 08:36:52 03/25/20 24 03/26/2024 COMPR EHENS LILLIAN METAB OLIC PANEL protein, total 6.1 g/dL 6.1-8. 1 normal Not Available [address], [address], 03/26/2024 08:36:52 03/25/20 24 03/26/2024 COMPR EHENS LILLIAN METAB OLIC PANEL albumin 4.1 g/dL 3.6-5. 1 normal Not Available [address], [address], 03/26/2024 08:36:52 03/25/20 24 03/26/2024 COMPR EHENS LILLIAN METAB OLIC PANEL globulin 2.0 g/dL_ (calc ) 1.9-3. 7 normal Not Available [address], [address], 03/26/2024 08:36:52 03/25/20 24 03/26/2024 COMPR EHENS LILLIAN METAB OLIC PANEL albumin/glob ulin ratio 2.1 (calc ) 1.0-2. 5 normal Not Available [address], [address], 03/26/2024 08:36:52 03/25/20 24 03/26/2024 COMPR EHENS LILLIAN METAB OLIC PANEL bilirubin, total 0.3 mg/dL 0.2-1. 2 normal Not Available [address], [address], 03/26/2024 08:36:52 03/25/20 24 03/26/2024 COMPR EHENS LILLIAN METAB OLIC PANEL alkaline phosphatase 76 U/L 37-153 normal Not Available [address], [address], 03/26/2024 08:36:52 03/25/20 24 03/26/2024 COMPR EHENS LILLIAN METAB OLIC PANEL AST 17 U/L 10-35 normal Not Available [facility] [address] [place], [address], 03/26/2024 08:36:52 03/25/20 24 03/26/2024 COMPR EHENS LILLIAN METAB OLIC PANEL ALT 22 U/L 6-29 normal Not Available [facility] [address] [place], [address], 03/26/2024 08:36:52 03/25/20 24 03/26/2024 TSH W/REF VICKIE TO FT4 TSH w/reflex to FT4 3.01 mIU/L normal Refer ence Range > or = 20 Years 0.40- 4.50 Pregn clayotn Range s First trime ster 0.26- 2.66 Secon d trime ster 0.55- 2.73 Third trime ster 0.43- 2.91 Not Available [facility] [address] [place], [address], 03/26/2024 08:36:53 03/25/20 24 03/26/2024 HEMOG LOBIN A1C hemoglobin A1C 5.3 %_of_ total _HGB <5.7 normal For the purpo se of scresanchez martinezg for the prese nce of diabe emily: <5.7% Consi stent with the absen ce of diabe emily 5.7-6 .4% Consi stent with incre ased risk for diabe emily (pred iabet es) > or =6.5% Consi stent with diabe emily This assay resul t is consi stent with a decre ased risk of diabe emily. Curre ntly, no conse nsus exist s priyank mcginnis use of hemog lobin A1c for diagn osis of diabe emily in child nereida. Accor ding to Ameri can Diabe emily Assoc iatio n (ADA) guide lines , hemog lobin A1c <7.0% repre sents optim al contr ol in non-p regna nt diabe tic patie nts. Diffe rent metri cs may apply to speci fic patie nt popul ation s. Stand ards of Medic al Care in Diabe emily(A DA). This test was perfo rmed on the Josue adelaide c503 platf orm. Effec tive , a carmenza bradford in test platf orms from the [facility] Archi tect to the Josue adelaide c503 may have shift ed HbA1c resul ts reji red to histo rical resul ts. Based on labor atory valid ation testi ng condu cted at [facility] , the Josue platf orm relat lillian to the [facility]bot t platf orm had an avera ge incre ase in HbA1c value of < or = 0.3%. This diffe rence is withi n accep kevin varia bilit y estab lishe d by [facility] hemog lobin Stand ardiz ation Progr am. Note that not all indiv idual s will have had a shift in their resul ts and direc t reji rison s betwe en histo rical and curre nt resul ts for testi ng condu cted on diffe rent platf orms is not recom eunice d. Not Available [facility] [address], [place], [address], 03/26/2024 08:36:54 01/23/20 24 01/23/2024 MAMMO , scree lupillo, digit al, bilat eral No observ ation record ed. [email or web address] [facility] [address] [place], [address], 01/23/2024 11:35:23 12/22/19 25 12/21/2024 US, foot No observ ation record ed. [email or web address] [facility] [address], [place], [address], 12/22/2024 10:50:50 01/11/20 25 XR, foot, 3 or more view No observ ation record ed. [email or web address] [facility] [address], [place], [address], 01/11/2025 17:27:58 Result Notes None recorded. Problems Name Problem SNOMED Code Status Onset Date Resolution Date Notes Provider Name and Address Organization Details Recorded Time Acute sinusiti s 51177762 Completed 03/25/2024 CYRUS Cooper [address], [address], [place], [address] , [employer] 4 09:31:59 Multiple sclerosi s 28289921 Active López Ochoa MD [address], [address], [place], [address] , [employer] 5 11:53:03 Depressi ve disorder 91803467 Active López Ochoa MD [address], [address], [place], [address] , [employer] 5 15:04:37 Migraine 07290557 Active López Ochoa MD [address], [address], [place], [address] , [employer] 5 11:53:01 Cervicov aginal cytology : 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 098556050 Active Not Available [facility] 3 06:48:34 Temporom andibula r joint disorder 00400730 Active Not Available [facility] 3 06:48:34 Anxiety 88114470 Active López Ochoa MD [address], [address], [place], [address] , [employer] 5 15:04:47 Allergic urticari a 32316894 Completed 202203/25/2024 CYRUS Cooper [address], [address], [place], [address] , [employer] 4 09:32:27 Administ ration of influenz a vaccine Completed 202203/25/2024 CYRUS Cooper [address], [address], [place], [address] , [employer] 4 09:32:02 Verruca vulgaris 52690575 Active 2022 midway up thigh anterior ly right 3 mm López Ochoa MD [address] [facility] [address], [place], [address] , [facility] [employer] [facility] 5 11:54:05 Genital herpes simplex 06960230 Active 2023 CYRUS Cooper [address] [facility], [address] [address], [place], [address] , [facility] [employer] [facility] 4 11:40:00 Overweig ht 521514783 Active 2023 López Ochoa MD [address] [facility], [address] [address], [place], [address] , [facility] [employer] [facility] 5 11:54:07 Notes:Medical History: Multi ple sclerosis Anxiety/Depression Migraine headaches Hypertriglyceridemia HSV-2 infection Verruca vulgaris Problem Notes None recorded. Procedures Surgical History Date Name Laterality Status Provider Name and Address Organization Details Recorded Time 12/27/19 24 Most Recent Mammogram completed Carito Hanley RN [facility] [employer] [facility] 03/25/2024 11:24:56 11/25/19 23 Date of Last Colonoscopy completed Carito Hanley RN [facility] [email or web address] [facility] 03/25/2024 11:25:08 04/05/20 21 Date of Last Pap Smear completed Not Available [facility] 01/23/2023 06:41:37 05/03/20 16 MANAGER ASSESSMENT Surgery completed Not Available [facility] 01/24/20 23 06:41:39 10/30/20 12 MANAGER ASSESSMENT Procedure completed Not Available [facility] 2022 06:41:39 01/11/19 98 section completed Not Available [facility] 01/23/2023 06:41:39 Imaging Results None recorded. Procedure Notes None recorded. Medical Equipment None Reported. Allergies No known drug allergies Medications Name Sig Start Date Stop Date Status Note LastModified by Organization Details LastModified Time azithromyci n 250 mg tablet Take 2 TABLET EVERY DAY by oral route for 1 day. Than 1 tablet for 4 days active Not Available Not Available No t Available valacyclovi r 1 gram tablet Take 1 tablet by mouth once daily 03/25 completed Not Available Not Available Not Available cephalexin 250 mg capsule active Not Available Not Available Not Available atovaquone 250 mg-proguani l 100 mg tablet active Not Available Not Available Not Available valacyclovi r 500 mg tablet TAKE 1 TABLET BY MOUTH TWICE DAILY NEEDED 01/11 completed Not Available Not Available Not Available ciprofloxac in 500 mg tablet Take 1 tablet every 12 hours by oral route. active Not Available Not Available No t Available oxycodone-a cetaminophe n 5 mg-325 mg tablet 06/25 completed Not Available Not Available Not Available citalopram 20 mg tablet 1 po daily active Not Available Not Available No t Available modafinil 200 mg tablet TAKE 1/2 TO 1 (ONE-HALF TO ONE) TABLET BY MOUTH ONCE DAILY active Not Available Not Available No t Available rizatriptan 10 mg disintegrat ing tablet 1 at onset of headache and may repeat in 2 hours as needed. active Not Available Not Available No t Available cephalexin 500 mg capsule Take 1 capsule 3 times a day by oral route for 7 days. active Not Available Not Available No t Available mupirocin 2 % topical ointment APPLY A SMALL AMOUNT TO THE AFFECTED AREA BY TOPICAL ROUTE 3 TIMES PER DAY active Not Available Not Available No t Available Copaxone 20 mg/mL subcutaneou s syringe kit active Not Available Not Available Not Available methylpredn isolone 4 mg tablets in a dose pack TAKE BY MOUTH DIRECTED ON INSIDE OF PACKAGE 03/25 completed Not Available Not Available Not Available amoxicillin 875 mg-potassiu m clavulanate 125 mg tablet Take 1 tablet every 12 hours by oral route for 10 days. active Not Available Not Available No t Available Sprintec (28) 0.25 mg-0.035 mg tablet TAKE 1 TABLET BY MOUTH ONCE DAILY 03/14 completed Not Available Not Available Not Available Microgestin 1.5/30 (21) 1.5 mg-30 mcg tablet TAKE ONE TABLET BY MOUTH ONCE DAILY 09/09 completed Not Available Not Available Not Available Vesicare 10 mg tablet active Not Available Not Available No t Available Keflex 750 mg capsule Take 1 capsule twice a day by oral route. active Not Available Not Available No t Available desvenlafax ine succinate ER 50 mg tablet,exte nded release 24 hr Take 1 tablet by mouth once daily 2024 active Not Available Not Available Not Avai lable desvenlafax ine succinate ER 100 mg tablet,exte nded release 24 hr Take 1 tablet every day by oral route as directed for 90 days. 2024 active Not Available Not Available Not Avai lable fesoterodin e ER 8 mg tablet,exte nded release 24 hr TAKE 1 BY MOUTH ONCE DAILY active Not Available Not Available No t Available Nuvigil 150 mg tablet active Not Available Not Available No t Available sodium,pota ssium,mag sulfates 17.5 gram-3.13 gram-1.6 gram oral soln TAKE DIRECTED 03/25 completed Not Available Not Available Not Available Vitamin D2 active Not Available Not Av ailable Not Available teriflunomi de 14 mg tablet active Not Available Not Available Not Available Tecfidera 120 mg (14)-240 mg (46) capsule,del ayed release active Not Available Not Available Not Available Copaxone 40 mg/mL subcutaneou s syringe 09/09 completed Not Available Not Available Not Available BinaxNOW COVID-19 Ag Self Test kit Use as Directed on the Package 03/14 completed Not Available Not Available Not Available Paxlovid 300 mg (150 mg x 2)-100 mg tablets in a dose pack TAKE 3 TABLETS TOGETHER (TWO 150 MG NIRMATREL VIR TABLETS AND ONE 100 MG RITONAVIR TABLET) BY MOUTH TWICE DAILY FOR 5 DAYS. 03/14 completed Not Available Not Available Not Available Vitals Date Recorded Body height Body mass index (BMI) Body weight Body temperature Heart rate Respiratory rate Oxygen saturation Oxygen saturation in Arterial blood by Pulse oximetry Pain severity - 0-10 verbal numeric rating [Score] - Reported Systolic And Diastolic Provider Name and Address Organization Details Last Updated DateTime 5 170.18 cm 27.4 kg/m2 82298.6 6 g 97.3 [degF] 87 /min 20 /min 99 % 99 % 0 152/98 mm[Hg] Carito Hanley RN [place] [employer] 5 12:37:44 Date Recorded Body height Body mass index (BMI) Body weight Heart rate Respiratory rate Oxygen saturation Oxygen saturation in Arterial blood by Pulse oximetry Systolic And Diastolic Provider Name and Address Organization Details Last Updated DateTime 5 172.72 cm 27.4 kg/m2 50036.6 3 g 103 /min 14 /min 99 % 99 % 132/87 mm[Hg] Kathryn George [facility] [employer] [facility] 5 16:26:22 Date Recorded Body height Body mass index (BMI) Body weight Body temperature Heart rate Respiratory rate Oxygen saturation Oxygen saturation in Arterial blood by Pulse oximetry Pain severity - 0-10 verbal numeric rating [Score] - Reported Systolic And Diastolic Provider Name and Address Organization Details Last Updated DateTime 4 170.18 cm 27.4 kg/m2 11626.7 1 g 97 [degF] 83 /min 20 /min 97 % 97 % 0 124/84 mm[Hg] Carito Hanley RN [facility] [employer] [facility] 4 11:21:54 Date Recorded Body height Body mass index (BMI) Body weight Body temperature Heart rate Respiratory rate Oxygen saturation Oxygen saturation in Arterial blood by Pulse oximetry Systolic And Diastolic Provider Name and Address Organization Details Last Updated DateTime 5 172.72 cm 27.2 kg/m2 96602.0 3 g 97.5 [degF] 104 /min 16 /min 99 % 99 % 120/76 mm[Hg] Ciara Whitmore RN [facility] [employer] [facility] 5 15:55:55 Date Recorded Body height Body mass index (BMI) Body weight Body temperature Heart rate Oxygen saturation Oxygen saturation in Arterial blood by Pulse oximetry Systolic And Diastolic Provider Name and Address Organization Details Last Updated DateTime 3 170.18 cm 28 kg/m2 39706.0 3 g 98.5 [degF] 115 /min 97 % 97 % 108/62 mm[Hg] Catrachita Morgan MA [facility] [employer] [facility] 3 14:55:15 Social History Question Answer Notes LastModified by Organizat ion Details LastModified Time Tobacco Smoking Status Never Smoker Not Available [employer] 01/23/2023 06:41:15 Do You Have An Advance Directive? No Information not available 03/25/2024 Is Blood Transfusion Acceptable In An Emergency? Yes Information not available 03/25/2024 What Is Your Level Of Caffeine Consumption? Moderate [id number] Information not available 01/23/2023 What Is Your Code Status? Full Code Information not available 03/25/2024 In The 14 Days Before Symptom Onset, Have You Had Close Contact With A Laboratory-confir med COVID-19 While That Case Was Ill? No [id number] Information not available 01/23/2023 In The 14 Days Before Symptom Onset, Have You Had Close Contact With A Person Who Is Under Investigation For COVID-19 While That Person Was Ill? No [id number] Information not available 01/23/2023 What Type Of Diet Are You Following? REGULAR Information not available 03/25/2024 Which Illicit Or Recreational Drugs Have You Used? None [id number] Information not available 01/23/2023 Have There Been Any Changes To Your Family Or Social Situation? No Information no t available 03/25/2024 Are There Any Guns Present In Your Home? No Information not available 03/25/2024 Do You Use Insect Repellent Routinely? No Information not available 03/25/2024 Where Do You Live? SingleLevelHouse Information not available 03/25/2024 Do You Have A Medical Power Of Medical Education Specialist? No Information not available 03/25/2024 What Was The Date Of Your Most Recent Tobacco Screening? 01/11/2025 Information not available 01/11/2025 How Many Children Do You Have? 2 Information not available 03/25/2024 Have You Ever Been Counseled For Unhealthy Alcohol Use? No Information not available 01/11/2025 Do You Have Any Pets? Yes Information not available 03/25/2024 What Is Your Relationship Status? Information not available 03/25/2024 Do You Use Your Seat Belt Or Car Seat Routinely? Yes Information not available 03/25/2024 Do You Have Smoke And Carbon Monoxide Detectors In Your Home? Yes Information not available 03/25/2024 Are You Passively Exposed To Smoke? No Information no t available 03/25/2024 Are There Any Smokers In Your House? No Information not available 03/25/2024 Do You Participate In Social Media? Yes Information not available 03/25/2024 Do You Use Sunscreen Routinely? No Information not available 03/25/2024 Has Tobacco Cessation Counseling Been Provided? No Information not available 01/11/2025 Have You Recently Traveled Abroad? No Information not available 03/25/2024 Sex: Unknown Functional Status Question Answer Note LastModified by Organizat ion Details LastModified Time Do you use any illicit or recreational drugs? No Information not available 01/11/2025 Do you or have you ever used any other forms of tobacco or nicotine? No Information not available 01/11/2025 What is your level of alcohol consumption? Occasional [id number] Information not available 01/23/2023 Are you currently employed? 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 Never used electronic cigarettes [id number] Information not available 01/23/2023 What is your exercise level? None [id number] Information not available 01/23/2023 Mental Status Question Answer Note LastModified by Organization D etails LastModified Time Do you feel stressed (tense, restless, nervous, or anxious, or unable to sleep at night)? [id number] Information not available 03/25/2024 Family History Relationship Description Onset Age of this Age Resolved Age Notes LastModified by Organization Details LastModified Time Paternal Grandmother Diabetes mellitus Not available 2024 16:41:15 Paternal Grandfather Diabetes mellitus Not available 2024 16:41:18 Paternal Uncle Family history of stroke Not available 2024 16:41:41 Paternal Aunt Family history of stroke Not available 2024 16:41:42 Father Arthritis Not available 01/11/2025 16:41:50 Father Hypertensive disorder Not available 2024 16:41:58 Notes:no new Medical History Condition Response SKIN PROBLEMS Y MULTIPLE SCLEROSIS Y AUTOIMMUNE DISEASE Y ANXIETY DISORDER Y DEPRESSION (INCLUDING POST ) Y HERPES Y Gynecological History Statement/Question Response Abnormal Pap Y Flow Heavy Date of LMP 01/14/2021 Dislike of Light during Menstrual Headac he N Do your menstrual headaches get severe N Date of Last Pap 04/04/2020 Duration of Flow (days) 7 Most Recent Mammogram 12/27/2023 Current Control Method Tubal Ligat ion Age at Menarche 14 Date of Last Colonoscopy 11/25/2022 Frequency of Cycle (Q days) Most Recent Bone Density Do you get headaches during your period N Date of Last Pap Smear 04/05/2021 Obstetrics History GPAL:G 2 P 2 0 0 2 Type Value Full Term 2 Living 2 Total 2 Immunizations Vaccine Type Date Status Note Provider Nam e and Address Organization Details Recorded Time Tdap 5 completed Ciara Whitmore RN [facility], [place] ED[facility] [email or web address] [facility] 04/01/2025 16:24:47 Influenza, MDCK, quadrivalent, PF 2 completed Mara Jessica HAND ASSEMBLER [address], [address], [place], [address], [facility] ED[facility] [email or web address] [facility] 03/25/2024 11:42:29 COVID-19, mRNA, LNP-S, PF, 30 mcg/0.3 mL dose 1 completed CYRUS Cooper [address], [address], [place], [address], [facility] [email or web address] [facility] 03/25/2024 11:42:29 COVID-19, mRNA, LNP-S, PF, 30 mcg/0.3 mL dose 1 completed CYRUS Cooper [address], [address], [place], [address], [facility] [email or web address] [facility] 03/25/2024 11:42:29 COVID-19, mRNA, LNP-S, bivalent, PF, 30 mcg/0.3 mL dose 2 completed CYRUS Cooper [address], [address], [place], [address], [facility] [email or web address] 03/25/2024 11:42:29 Influenza, split virus, quadrivalent, PF 3 completed SHERMAN Pedro [address], [address], [place], [address], [facility] 09/02/2023 13:42:51 Hep A, adult 5 completed Not Available [facility] 01/23/2023 06:57:00 Hep B, adult 5 completed Not Available [facility] 01/23/2023 06:57:01 Hep B, adult 5 completed Not Available [facility] 01/23/2023 06:57:01 typhoid, ViCPs 5 completed [facility] 01/23/2023 06:57:01 Hep A, adult 5 completed Not Available [facility] 01/23/2023 06:57:01 Tdap 5 completed Not Available [facility] 01/23/2023 06:57:01 zoster recombinant 2 completed Not Available [facility] 01/23/2023 06:57:02 zoster recombinant 2 completed Not Available [facility] 01/23/2023 06:57:02 Influenza, split virus, quadrivalent, PF 9 completed Not Available [facility] 01/23/2023 06:57:02 Influenza, split virus, quadrivalent, PF 8 completed Not Available [facility] 01/23/2023 06:57:02 Influenza, split virus, quadrivalent, PF 7 completed Not Available [facility] 01/23/2023 06:57:02 Influenza, split virus, quadrivalent, preservative 6 completed Not Available [facility] 01/23/2023 06:57:02 Influenza, split virus, quadrivalent, preservative 5 completed Not Available [facility] 01/23/2023 06:57:02 Influenza, split virus, trivalent, preservative 4 completed CYRUS Cooper [address], [address], [place], [address], [facility] 03/25/2024 11:42:29 Influenza, split virus, quadrivalent, PF 0 completed Not Available [facility] 01/23/2023 06:57:03 Past Encounters Encounter ID Performer Location Encounter Start Date Encounter Closed Date Diagnosis/Indication Diagnosis SNOMED-CT Code Diagnosis ICD10 Code Diagnosis Note [id number] [facility] [place] [facility]_ DEFAULT_1 _1 , 04/05/2021 00:00:00 04/05/2021 11:17:54 [id number] Neal Sultana MD [facility] Kayden peterson [facility]ly [facility] [place] [address] 05/05/2021 00:00:00 05/06/2021 10:12:49 [id number] Neal Sultana MD [facility] Kay[address] peterson [facility]ly [facility] [place] [address] 01/24/2022 00:00:00 01/24/2022 09:35:49 [id number] Neal Sultana MD [facility] Kay[address] peterson [facility]ly [facility] [place] [address] 06/12/2022 00:00:00 06/12/2022 16:09:04 [id number] Neal Sultana MD [facility] Kayden peterson [facility] [place] [address] 03/14/2023 11:53:34 03/14/2023 12:27:13 Urgent desire for stool 89469106 R15.2 Pt also is needing a colonoscop y Adult heal th examination 721795346 Z00.00 [id number] Neal Sultana MD [facility] Kay[address] [place] [address] 08/27/2023 14:47:04 08/27/2023 15:18:21 Administration of influenza vaccine 56821469 Z23 Verruca vulgaris 9626946 3 B07.9 [id number] Ramon Gomez MD [address] [address] 03/25/2024 11:05:23 03/25/2024 11:56:52 Genital herpes simplex 34491663 A60.9 Overweight 392034546 E66 .3 Depressive disorder 3548 9007 F32.A [id number] Ramon Gomez MD [address] [address] 12/09/2024 12:19:48 12/09/2024 12:56:56 Mass of subcutaneous tissue of right foot [id number] 5139278 R22.41 Rotating ibuprofen and tylenol for painAdvise d to keep elevated and utilize solomon bandage as needed [id number] Cecilio Hurd DPM [facility] Podiatry Darío Anthony [address] [place] [address] 01/11/2025 16:14:56 01/12/2025 12:58:43 Pain in right foot [id number] 50651 M79.671 no strenuous activities Supportive shoe gearRice therapyRec ommend topical Voltaren gelstretch ing exercises dispensed for peroneal tendinitis recommend Powerstep [place] orthoticsF ollow-up in 3 weeks- possible corticoste roid injection with Cam boot Peroneal t endinitis of right lower limb [id number] 17968 M76.71 as above Calcium de posits in tendon 844516031 M65.89 peroneal brevis tendon attachment right [id number] CYRUS Cooper [address] [address] 04/01/2025 15:47:33 04/01/2025 16:35:38 Depressive disorder [id number] F32.A Notes worsening symptoms, lack of motivation . Would like to increase dose General ex amination of patient 271737167 Z00.00 Patient is overall healthyHea lth maintenanc e reviewedDi scussed diet and exercisePa tient questions answered Administra tion of tetanus vaccine 033119087 Z23 Overweight 219747698 E66 .3 Discussed diet and exercise Fatigue 87754624 R53.82 Sleep apnea 56119311 G47 .30 Snoring episodes, waking from her sleep gasping for air. Does have daytime fatigue Health Concerns Section Related Observation LastModified by Organization Daisy ls LastModified Time None Recorded Concern Status LastModified by Organization Details LastModified Time None Recorded Advance Directives Directive N: Payers Insurance Date Sequence Insurance Name Policy Number Policy Fry Covered Member ID Fry Member ID Guarantor Name 01/11/2025 1 [facility] (O) [id number] Briana Henleynenberg [id number] Briana [facility] 05/29/2025 1 [facility] [id number] Briana [facility] [id number] [facility]ana [facility] Notes Date Note Type Note Provider Name and Address Organization Details Recorded Time 08/27/2023 text/html ROS as noted in the HPI 52 y/o with a small lesion on right upper leg , non-painful, no drainage . SHERMAN Pedro [address] [place] [address], [facility] [address], [place], [address], [facility] [email or web address] 09/02/2023 13:47:31 03/25/2024 text/html Briana Madrid is a 53 year old female patient here to transition care. She was previously under the care of Dr. Sultana. Her past medical history is significant for multiple sclerosis. This is managed by an MS specialist Gera Bustillos at [facility]. She is currently taking teriflunomide 14 mg PO daily. She has overactive bladder. She is currently taking fesoterodine ER 8 mg PO daily. Her MS doctor also prescribed modafinil for narcolepsy. She takes 100 mg PO on work days.She takes 5,000 u vitamin D daily, this is also managed by her MS doctor. She has depressive disorder. She is currently taking desvenlafaxine ER 50 mg PO daily. She has been on this medication for more than 10 years. Her PHQ2/9 score today is 0. She has a history of HSV. She has valacyclovir on hand. She is currently taking 1g daily. She only have 2-3 outbreaks annually. We will switch to 500 mg BID PRN. Flu shot: OVID vaccines: 01/2021, 02/2021, 08/2022Tdap: 12/31/2014Shingles: 01/2022, olonoscopy: 06/[address] Mohan, will call for reportMammogram: 12/2023, managed by OBWWE: 11/2023, managed by OB CYRUS Cooper [address], [place], [address], [employer] 03/25/2024 11:51:49 12/09/2024 text/html Briana Madrid is a 54 year old female patient here today with concerns of foot pain After phill noticed lateral right foot pain, [place]24 and pain worsened. When she got home from the zoo she noticed a large bump of the lateral foot. Now has pain with activity and mild pain with rest.Does not recall and injury CYRUS Cooper [address], [place], [address], [employer] 12/09/2024 12:56:37 01/11/2025 text/html . Patient is a 54-year-old female she presents the office with complaints of pain to her right lateral foot. Patient had a ultrasound suspicious for possible soft tissue mass to the right lateral foot to which the ultrasound was negative. Patient had x-rays today which shows ossicles to the attachment of the peroneal brevis tendon with possible previous avulsion injury. Patient states she has had injury to the lateral part of her foot in the past but she did not seek medical attention. Patient has direct pain to palpation at the peroneal brevis attachment the 5th metatarsal base. Patient does have some mild swelling to the area. Patient denies any other complaints. Cecilio Hurd DPM [address], [place], [address], [employer] 01/11/2025 17:53:17 04/01/2025 text/html Briana Madrid is a 53 year old female patient here for an annual wellness visit. Her past medical history is significant for multiple sclerosis. This is managed by an MS specialist Gera Bustillos at [facility]. She is currently taking teriflunomide 14 mg PO daily. She has overactive bladder. She is currently taking fesoterodine ER 8 mg PO daily. Her MS doctor also prescribed modafinil for narcolepsy. She takes 100 mg PO on work days.She takes 5,000 u vitamin D daily, this is also managed by her MS doctor. She has depressive disorder. She is currently taking desvenlafaxine ER 50 mg PO daily. She has been on this medication for more than 10 years. Her PHQ2/9 score today is 0. She notes that she has lack of motivation and is reclusive. She would like to increase this dose. She has a history of HSV. She has valacyclovir on hand. She is currently taking 1g daily. She only have 2-3 outbreaks annually. We will switch to 500 mg BID PRN. Flu shot: OVID vaccines: 01/2021, 02/2021, 08/2022Tdap: 04/01/25Shingles: 01/2022, olonoscopy: 06/[address] Mohan, will call for reportMammogram: 12/2023, managed by OB. Has one scheduled for May 2025WWE: 11/2023, managed by OB CYRUS Cooper [address] [facility] [address], [place], [address], [facility] 04/01/2025 16:26:42 OBGyn Episode No OBEpisode recorded.
== END 2025-06-19 11:27 | disposition home or self-care (01) ==
LOC: ANHIMG 11:28
PROVIDERS: Visit Provider Obstetrics & Gynecology
DX: Z12.31 Encounter for screening mammogram for malignant neoplasm of breast (principal); R92.8 Other abnormal and inconclusive findings on diagnostic imaging of breast
CPT/HCPCS: 77063; 77067